=== PATIENT | male | born 1965 | race Caucasian/White ===

== ENCOUNTER 2018-12-28 06:40 | Day surgery (SDC) | payer OTHER ==
[2018-12-28] MEDS ORDERED: fentaNYL 100 MCG/2 ML SDV IV ONE (06:41)
[2018-12-28] MEDS ORDERED: Ondansetron 4 MG/2 ML SDV IVPUSH ONE (06:41)
[2018-12-28] MEDS ORDERED: Acetaminophen 1,000 MG/100 ML Infusion Bottle IV ONE (06:41)
[2018-12-28] MEDS ORDERED: Lidocaine 2% 100 MG/5 ML Syringe IVPUSH ONE (06:41)
[2018-12-28] MEDS ORDERED: Ketorolac 30 MG/ML SDV IVPUSH ONE (06:41)
[2018-12-28] MEDS ORDERED: Propofol 200 MG/20 ML SDV IV ONE (06:41)
[2018-12-28] MEDS ORDERED: Midazolam 1 MG/ML 2 ML SDV IV ONE (06:41)
[2018-12-28] MEDS ORDERED: Dexamethasone 4 MG/ML 5 ML MDV IVPUSH ONE (06:41)
[2018-12-28] MEDS ORDERED: Lactated Ringers 1,000 ML IV SCH (06:45)
[2018-12-28] MEDS ORDERED: ceFAZolin 2 GM in Premix Bag 1 BAG IV ONE (08:00)
[2018-12-28] MEDS ORDERED: Bupivacaine 0.5% 30 ML SDV ONE (08:10)
[2018-12-28] MEDS ORDERED: Lidocaine 1% with EPINEPHrine 1:100,000 20 ML MDV ONE (08:11)
[2018-12-28] MEDS ORDERED: Acetaminophen/HYDROcodone 325-5 MG Tab PO PRN (08:53)
--- NOTE | 2018-12-28 08:55 | PCM.OPNOTE ---
- General Post-Op/Procedure Note Date of Surgery/Procedure: 12/28/18 Operative Procedure(s): rih repair with mesh Findings: indirect hernia cord lipoma Pre Op Diagnosis: rih without obstruction or gangrene Post-Op Diagnosis: Same Anesthesia Technique: General LMA, Local (5 ml 1 % lido with epi/0.5% buvipicaine) Primary Surgeon: Shay Camejo Anesthesia Provider: Coby La ([facility] CRNAS) Pathology: none sent Complications: None Condition: Good Free Text/Narrative:: see dictation
--- NOTE | 2018-12-28 11:20 | OR ---
DATE OF OPERATION: 12/28/2018 SURGEON: Shay Camejo MD PROCEDURE PERFORMED: Right inguinal hernia repair. PREOPERATIVE DIAGNOSIS: Right inguinal hernia without obstruction or gangrene. POSTOPERATIVE DIAGNOSIS: Right inguinal hernia without obstruction or gangrene. INDICATIONS FOR PROCEDURE: This is a 53-year-old white male who is referred with a symptomatic right inguinal hernia. He was offered and accepted repair. INTRAOPERATIVE FINDINGS: An indirect hernia was identified as well as a cord lipoma. ANESTHESIA: A total of 5 mL of 1:1 mixture of 1% lidocaine with epinephrine and 0.5% bupivacaine was used for our local. IMPLANTS: The defect was repaired with a Phasix plug and patch, reference #[id number], lot number [id number] with a use by date of 11/29/2019, and OptiFix absorbable fixation system was also used, lot number [id number], reference #[id number], expiration date 10/29/2020. DESCRIPTION OF OPERATION: After an excellent LMA anesthesia was administered, the patient was prepped and draped in the usual sterile manner. Local was used to inject the planned incision site which was in the inguinal area with an intercept point of the incision at the inguinal ligament, mcc between the anterior-superior iliac spine and the symphysis pubis. The underlying subcu fat was identified. Superficial inferior epigastric vessels were clamped, divided, and tied with 2-0 Vicryl ties. Aponeurosis of the external oblique was exposed. More local was injected underneath. A josé was made in the aponeurosis, carried out through the external ring. Cord was then mobilized. Ilioinguinal nerve was identified. Cord was controlled with a 1-inch Yaw drain. Cord was then skeletonized. An indirect hernia was identified. There was a small rent made in the hernia sac and this was closed with 3-0 Vicryl prior to reduction. Several cord lipomata were also removed. An extra-large Phasix mesh plug was then placed into the defect, tacked into position with interrupted 2-0 Vicryl. The Phasix overlay mesh was then cut to size with a keyhole, placed on the floor of the inguinal canal and attached along the inferior edge along the inguinal ligament with a running 2-0 Vicryl. 2-0 Vicryl was also used to close the keyhole as well and then the OptiFix was used to fix the mesh to the floor of the inguinal canal. The area was irrigated. The aponeurosis was closed with a running 3-0 Vicryl. The Le's was closed with a running 3-0 Vicryl and the skin was closed with running subcu 4-0 Vicryl. The patient was taken to recovery room in good condition having tolerated the procedure well. /[id number] /MODL
== END 2018-12-28 10:20 | disposition home or self-care (01) ==
LOC: FB.SDS 06:40
PROVIDERS: ATTEND Surgery
DX: K40.90 Unilateral inguinal hernia, without obstruction or gangrene, not specified as recurrent (principal); Z98.890 Other specified postprocedural states; Z82.49 Family history of ischemic heart disease and other diseases of the circulatory system
CPT/HCPCS: 49505; A9270; C1713; C1781; J0131; J0690; J1100; J1885; J2001; J2250; J2405; J2704; J3010; J3490; J7120